=== PATIENT | female | born 1975 | race African-American/Black ===

== ENCOUNTER 2020-01-15 18:04 | Emergency (ER) | payer OTHER ==
[~2020-01-15] VITALS: Ht 144.8 cm; Wt 72.6 kg
[2020-01-15] MEDS ORDERED: XANAX 1 MG TABLE1 MG PO (23:25)
[2020-01-15 23:47] VITALS: BP 116/89
== END 2020-01-15 23:47 | disposition home or self-care (01) ==
LOC: ER 18:04
DX: R56.9 Unspecified convulsions (principal)